=== PATIENT | male | born 1980 | race Caucasian/White ===

== ENCOUNTER 2024-09-07 11:21 | Emergency (ER) | payer OTHER ==
[~2024-09-07] VITALS: Ht 185.4 cm; Wt 137.0 kg
[2024-09-07 11:43] VITALS: O2SAT 100
[2024-09-07 12:06] LABS: BASOPHILS % 0.5 % (0.0-2.0); EOSINOPHILS % 1.2 % (0.0-5.0); HEMATOCRIT. 44.6 % (42.0-52.0); LYMPHOCYTES % 39.2 % (20.0-50.0); MEAN CORPUSCULAR HEMOGLOBIN 28.9 pg (28.0-32.0); MEAN CORPUSCULAR HGB CONC 33.7 g/dL (31.0-37.0); MEAN CORPUSCULAR VOLUME 85.9 fL (80.0-94.0); MEAN PLATELET VOLUME 8.1 fl (7.4-10.4); MONOCYTES % 6.9 % (2.0-8.0); NEUTROPHILS % 52.2 % (40.0-76.0); PLATELET 212 x1000/uL (130-400); RED BLOOD CELL COUNT 5.19 mill/uL (4.7-6.1); RED CELL DISTRIBUTION WIDTH 14.2 % (11.6-14.6); WHITE BLOOD COUNT 7.1 x1000/uL (4.5-11.0)
[2024-09-07 12:14] LABS: CHLORIDE 101 mEq/L (98-107); SODIUM 136 mEq/L (136-145)
[2024-09-07 12:15] LABS: CARBON DIOXIDE 28 mEq/L (21-32)
[2024-09-07 12:16] LABS: CALCIUM 9.5 mg/dL (8.7-10.4)
[2024-09-07 12:20] LABS: CREATININE 0.9 mg/dL (0.6-1.3); GLUCOSE 116 mg/dL (70-105)
[2024-09-07 12:21] LABS: UREA NITROGEN BLOOD 11 mg/dL (9-23)
[2024-09-07] MEDS: MORPHINE SULFATE 4 MG/ML INJ (FOR IV/IM USE) IV STA (12:50)
[2024-09-07 13:35] VITALS: BP 130/72; PULSE 89; RESP 21; TEMP 36.8; O2SAT 100
== END 2024-09-07 13:51 | disposition home or self-care (01) ==
LOC: ER 11:21
DX: I10 Essential (primary) hypertension (principal); R51.9 Headache, unspecified; Z98.890 Other specified postprocedural states
CPT/HCPCS: 80048; 85025; 36415; 70450; 96374; 99285; J2270; Z7610 ×2